=== PATIENT | male | born 1955 | race African-American/Black ===

== ENCOUNTER 2016-11-03 09:26 | Observation (INO) | payer OTHER ==
[2016-10-31 08:41] LABS: HEMATOCRIT 39.5 % (40.0-51.0); HEMOGLOBIN 13.3 g/dL (13.6-17.8)
[2016-10-31 08:53] LABS: CALCIUM, SERUM 8.8 MG/DL (8.5-10.4); CHLORIDE, SERUM 108 MMOL/L (96-112); CO2 (CARBON DIOXIDE) 29 MMOL/L (24-34); CREATININE 0.87 MG/DL (0.70-1.30); GFR AFRICAN AMERICAN 109 ML/MIN (>=60); GFR NON AFRICAN AMERICAN 94 ML/MIN (>=60); POTASSIUM, SERUM 3.7 MMOL/L (3.5-5.3); SODIUM, SERUM 143 MMOL/L (135-148)
[2016-10-31 08:59] LABS: BUN (BLOOD UREA NITROGEN) 5 MG/DL (6-23); GLUCOSE, SERUM 142 MG/DL (60-99)
--- NOTE | ~2016-11-03 | OP ---
Record Of Operation [facility] [address] [place]. 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 PROCEDURE: Coccygectomy. FLUIDS: 1 liter of lactated Ringer's. ESTIMATED BLOOD LOSS: 5 mL. ANTIBIOTIC: Preoperatively. DRAINS: None. COMPLICATIONS: None. PREOPERATIVE HISTORY: This is a very friendly, 61-year-old gentleman, who lives alone but has significant complaints of coccydynia. He does have low back pain, but I did not feel that surgical intervention was warranted. He has an appointment with pain management pending. He may be a candidate for other nonoperative measures regarding his low back pain. Regarding his coccydynia, he does have a significant deformity and had associated pain at the coccygeal region. He and I discussed the pros and cons of surgery. I discussed with him the very obvious issue of soft tissue infection given his diabetes. We also discussed the need for meticulous wound care. DESCRIPTION OF PROCEDURE: After informed consent was obtained, the patient was brought to the operating room at his request and general anesthesia achieved. He was placed in the prone position with a bump underneath his pelvis. The perineal area was prepped and draped in a sterile fashion. The tip of the coccyx was then isolated from the perineal area. Under loupe magnification and head lamp, a small paramedian incision was then performed. The dissection was carried down to the deformed coccyx. Next, the high-speed bur was used to remove the hypermobile and deformed coccyx. We then used irrigation and Gelfoam for hemostasis. Following irrigation, a multilevel layer closure was performed. Standard dressings were applied. The patient was then extubated and transferred to PACU in stable condition. He was kept overnight for observation primarily because he did not have any caregivers who could come, be with him throughout the day and at night. I felt this was the best course of action from a medical perspective. MARILU/LUBA Record Of [place] [id number] [facility] [address] NAME: MILENA HOANG : 57 STATUS : DIS Elinor PAT#: [id number] AGE: 61 ADM/REG DATE : 11/03/16 MR#: [id number] REPORT SERV DATE: 11/06/16 DICTATED BY: PAVITHRA CARMEN II DATE: 11/06/16 REPORT STATUS : Draft TRANSCRIBED BY: LUBA DATE: 11/06/16 Pavithra Carmen II, M.D. / [id number] CC: Abhinav Brian II, M.D.
[~2016-11-03 09:26] MED LIST: ACIPHEX PO; ALTA5 PO; ALTACE10 MG PO; AMIT10 PO; ASAB PO; ASMANEX PO; ATARAX50B PO; ATIVAN2 MG PO; BUM2 PO; BUSPAR10 PO; CENTRUM PO; CITRACAL PO; CYANO1000T PO; FERRETTS325 MG PO; FISH-EPA1000 MG PO; FLOVENT44 INH; FOLIC ACID800 MCG PO; HALF81 PO; HUMALOG SC; INSNOVR SC; K-TABS10 MEQ PO; KADIANSR30 PO; L20 PO; LAMICTAL200 MG PO; LANTUS SC; LORTAB10 PO; MEDROLPAK4 PO; MIRALAXPKT PO; MULTIPLE VIT PO; NEUR300 PO; NEUR600 PO; NEXIUM40 PO; NOVOLOG SC; NUTRA/PRO PO; OCUVITE PO; OPANA ER30 MG PO; OXYCOD PO; OXYCONTIN30 MG PO; PERCOCET1 TA4 PO; PHENADOZ25 MG RE; POTASSIUM PO; PROAIR HFA INH; PROTEIN PO; PROTONIX PO; PROZAC PO; PROZAC40 MG PO; REM15 PO; REQUIP1 PO; ROXICODONE30 MG PO; SEROQUEL XR200 MG PO; SEROQUEL400 MG PO; SUCR PO; V5 PO; VIST50 PO; VITAMIN B-122500 MCG SL; VITAMIN B-1500 MG PO; VITAMIN B-6 PO; VITAMIN D31000 UNIT PO; VITC500 PO; Vitamin B-Twelve PO; XANAX1 MG PO; XANAX2 MG PO; ZOCOR20 PO; [UNRECOGNIZED DRUG - OTHER] PO
[2016-11-04] MEDS ORDERED: MSCONTIN PO (16:30)
== END 2016-11-04 17:16 | disposition home or self-care (01) ==
LOC: SDC 09:26 → 3SO 18:01
PROVIDERS: Orthopaedic Surgery
PROC: 0QTS0ZZ Resection of Coccyx, Open Approach (ICD-10-PCS; principal; 2016-11-03 13:45)
DX: M53.3 Sacrococcygeal disorders, not elsewhere classified (principal); K21.9 Gastro-esophageal reflux disease without esophagitis; I10 Essential (primary) hypertension; G47.33 Obstructive sleep apnea (adult) (pediatric); M79.7 Fibromyalgia; F17.210 Nicotine dependence, cigarettes, uncomplicated; E11.9 Type 2 diabetes mellitus without complications; F31.9 Bipolar disorder, unspecified; M19.90 Unspecified osteoarthritis, unspecified site; Z90.89 Acquired absence of other organs; Z68.26 Body mass index [BMI] 26.0-26.9, adult; Z90.49 Acquired absence of other specified parts of digestive tract; Z98.890 Other specified postprocedural states
CPT/HCPCS: 80048; 82962; 85014; 85018; 93005; 96374; 96375; 96376; 97116-GP; 97161-GP; A9270-GY; G0378; J0690; J1170; J2250; J2405; J2710; J3010; J3370